=== PATIENT | female | born 2000 | race Caucasian/White ===

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

== ENCOUNTER 2019-04-03 02:44 | Inpatient (IN) | payer OTHER, MEDICAID ==
[~2019-04-03] VITALS: Ht 171.4 cm; Wt 90.9 kg
[2019-04-03] MEDS ORDERED: normal saline 1000ML IV soln IV ONE ×2 (03:05→05:20)
[2019-04-03 03:40] LABS: URINE HCG POSITIVE (NEG)
[2019-04-03 03:41] LABS: CLARITY,URINE SLIGHTLY CLOUDY (Clear); GLUCOSE, URINE NEGATIVE (Neg); KETONES,URINE 40 mg/dl (Neg); LEUKOCYTE ESTERASE ,URINE MODERATE (Neg); NITRITES, URINE NEGATIVE (Neg); OCCULT BLOOD,URINE LARGE (Neg); PH,URINE 6.5 (4.8-8.0); PROTEIN,URINE TRACE mg/dl (Neg)
[2019-04-03 03:43] LABS: COLOR,URINE DARK YELLOW (Yellow); UA COLLECTION TYPE CLN CATCH MIDSTREAM
[2019-04-03 03:51] LABS: WBC,URINE 20-30 /HPF (0-4)
[2019-04-03 03:52] LABS: BACTERIA,URINE 3+ /HPF (Neg); MUCUS STRANDS MANY /LPF (Neg); SQUAMOUS EPITHELIAL CELL,UR MANY /LPF (FEW); TRANSITIONAL EPI CELLS,URINE FEW /HPF
[2019-04-03] MEDS ORDERED: CefTRIAXone/D5W-Rocephin 1gm 50 ML IV ONE (03:55)
[2019-04-03 03:57] LABS: PARTIAL THROMBOPLASTIN TIME 28 SECONDS (22-32)
[2019-04-03 04:00] LABS: ALANINE AMINOTRANSFERASE 18 U/L (12-78); ALBUMIN 3.5 G/DL (3.4-5.0); ALBUMIN/GLOBULIN RATIO 0.8 (1.1-1.5); ALKALINE PHOSPHATASE 93 IU/L (20-180); ANION GAP 13 (8-16); ASPARTATE AMINO TRANSFERASE 14 U/L (10-37); BILIRUBIN,TOTAL 1.2 MG/DL (0.1-1.0); BLOOD UREA NITROGEN 4 MG/DL (7-18); BUN/CREATININE RATIO 6.5 (6.6-38.0); CALCIUM 9.5 MG/DL (8.5-10.1); CHLORIDE 98 MMOL/L (99-107); CREATININE 0.62 MG/DL (0.40-0.90); GLUCOSE 89 MG/DL (70-104); MAGNESIUM 1.8 MG/DL (1.5-2.4); SODIUM 135 MMOL/L (135-145); TOTAL CARBON DIOXIDE 24.5 MMOL/L (24-32); TOTAL PROTEIN 7.7 G/DL (6.4-8.2); eGFR > 90 ML/MIN
[2019-04-03 04:05] LABS: POTASSIUM 2.9 MMOL/L (3.5-5.1)
[2019-04-03 04:08] LABS: BASOPHILS % (AUTO) 0.3 % (0-1); EOSINOPHILS % (AUTO) 0.3 % (0-6); HEMATOCRIT 34.2 % (35.0-45.0); HEMOGLOBIN 11.8 g/dl (12.0-16.0); LYMPHOCYTES # (AUTO) 0.9 X10'3 (1.1-4.8); LYMPHOCYTES % (AUTO) 8.4 % (21-51); MEAN CORPUSCULAR HEMOGLOBIN 29.7 PG (27.0-31.0); MEAN CORPUSCULAR HGB CONC 34.6 g/dL (33.0-36.5); MEAN CORPUSCULAR VOLUME 85.9 FL (78-98); MEAN PLATELET VOLUME 9.8 FL (7.4-10.4); MONOCYTES # (AUTO) 1.3 X10'3 (0-0.9); NEUTROPHILS # (AUTO) 8.5 X10'3 (1.8-7.7); PLATELET COUNT 248 X10'3 (140-440); RED BLOOD COUNT 3.98 X10'6 (4.20-5.60); RED CELL DISTRIBUTION WIDTH 13.6 % (11.5-14.5); WHITE BLOOD COUNT 10.8 X10'3 (4.5-11.0)
[2019-04-03] MEDS ORDERED: potassium Cl 20 mEq SR tablet PO ONE (04:10)
[2019-04-03] MEDS ORDERED: potassium Cl 10 mEq/100mL bag IV ONE (04:10)
[2019-04-03] MEDS ORDERED: ondansetron/PF 4mg/2ml inj IV ONE (04:15)
[2019-04-03 04:23] LABS: CLARITY,URINE SLIGHTLY CLOUDY (Clear); COLOR,URINE YELLOW (Yellow); GLUCOSE, URINE 100 mg/dl (Neg); KETONES,URINE >=80 mg/dl (Neg); LEUKOCYTE ESTERASE ,URINE TRACE (Neg); NITRITES, URINE NEGATIVE (Neg); OCCULT BLOOD,URINE LARGE (Neg); PROTEIN,URINE 30 mg/dl (Neg); UA COLLECTION TYPE STRAIGHT CATH
[2019-04-03 04:30] LABS: BACTERIA,URINE FEW /HPF (Neg); WBC,URINE 20-30 /HPF (0-4)
[2019-04-03 04:31] LABS: MUCUS STRANDS MANY /LPF (Neg); TRANSITIONAL EPI CELLS,URINE FEW /HPF; WBC CLUMPS,URINE MODERATE /HPF (NEGATIVE)
[2019-04-03 04:32] LABS: SQUAMOUS EPITHELIAL CELL,UR MODERATE /LPF (FEW)
[2019-04-03 04:33] LABS: FINE GRANULAR CAST 0-3 /LPF (NEGATIVE); HYALINE CASTS 0-3 /LPF (NEGATIVE)
[2019-04-03] MEDS ORDERED: ONDA4TAB12 PO (05:34)
[2019-04-03] MEDS ORDERED: magnesium 2GM in 50ml NS 50 ML IV PRN (06:25)
[2019-04-03] MEDS ORDERED: mag hydrox/Alum hydrox/simeth 30ml oral suspension PO PRN (06:25)
[2019-04-03] MEDS ORDERED: magnesium 4gm in 100ml NS 100 ML IV PRN (06:25)
[2019-04-03] MEDS ORDERED: potassium Cl 20 mEq SR tablet PO PRN (06:25)
[2019-04-03] MEDS ORDERED: ondansetron/PF 4mg/2ml inj IV PRN (06:25)
[2019-04-03] MEDS ORDERED: magnesium hydroxide 30ml (MOM) UD suspension PO PRN (06:25)
[2019-04-03] MEDS ORDERED: potassium CL 10mEq/100ml bag 100 ML IV PRN ×2 (06:25)
[2019-04-03] MEDS ORDERED: acetaminophen 325mg tablet PO PRN ×2 (06:25)
[2019-04-03] MEDS ORDERED: magnesium Cl slow-release 64mg tablet PO PRN (06:25)
--- NOTE | 2019-04-03 07:15 | NUR ---
RECEIVED REPORT FROM NICKO CONLEY RN.
--- NOTE | 2019-04-03 07:40 | NUR ---
PATIENT ARRIVED TO ROOM 4013 AT THIS TIME.
[2019-04-03 07:45] VITALS: BP 118/78
[2019-04-03] MEDS ORDERED: K and/or MAG REPLACEMENT MC SCH (08:00)
[2019-04-03] MEDS ORDERED: FLU VACC QS2019-20 36MOS UP/PF 60 MCG/0.5 ML SYRINGE IMVAC ONE (08:35)
[2019-04-03] MEDS: potassium Cl 20 mEq SR tablet PO PRN ×2 (08:37→14:39)
[2019-04-03 10:00] VITALS: BP 105/57
[2019-04-03] MEDS ORDERED: AMOX-580 PO (12:51)
--- NOTE | 2019-04-03 13:10 | NUR ---
Malnutrition consult: Pt 16 weeks seen at bedside reports UBW 214 lbs with 13 lb wt loss r/t not eating much and increased emesis secondary to being . If pt truly lost this weight, this would be non-significant wt loss of 6% in 4 months. Per records pt weighed 196 lb 06/06/16 using standing scale and 205 lbs 03/16/18 also using a standing scale; current documented wt is 200 lb. Per wt hx pt with non-significant wt loss of 2% in 1 year. Pt currently on a regular diet however reports only eating a [employer] burrito for lunch. Pt with no decrease in muscle strength, edema, or visible fat/muscle wasting. Pt currently does not meet criteria for malnutrition. 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 RD encouraged PO intake d/t and provided pt with alternative write in menu to provide additional food options and RD contact information. Pt reports she takes antinausea medication at home to help increase PO intake. Pt reports BM today. Will continue to follow. Addendum: 04/03/19 at [address] Amended: Links added.
--- NOTE | 2019-04-03 13:47 | NUR ---
Noted patient's K+ 2.9, replaced K+ per protocol x [address] Landrum about rechecking K+ prior to discharge, states just to give 40 meq x 1 K+ now before leaving.
--- NOTE | 2019-04-03 14:53 | NUR ---
Patient discharged at this time, discussed discharge instructions, verbalized understanding, eager to go home. Called medication into [facility] in [facility]. Escorted out via [facility] staff per ambulation, tolerated well, without event. Belongings sent with patient, IV removed, Flu shot IM and po K+ 40 mEq x1 given before discharge. Patient aware she is to follow-up with PCP.
[2019-04-04] MEDS ORDERED: CefTRIAXone 2gm/D5W 50ml 50 ML IV SCH (08:00)
== END 2019-04-03 14:50 | disposition home or self-care (01) | DRG 833 ==
LOC: ER 02:45 → ED HOLD 06:22 → ORTHO 4S 07:39
PROVIDERS: ADMIT Hospitalist; ATTEND Internal Medicine
DX: O23.02 Infections of kidney in pregnancy, second trimester (principal); O99.282 Endocrine, nutritional and metabolic diseases complicating pregnancy, second trimester; Z3A.16 16 weeks gestation of pregnancy; Z87.440 Personal history of urinary (tract) infections; E87.6 Hypokalemia; O99.352 Diseases of the nervous system complicating pregnancy, second trimester; Z23 Encounter for immunization
CPT/HCPCS: 36415; 76775; 80053; 81001; 81025; 83605; 83735; 84145; 85025; 85610; 85730; 87040; 87077; 87081; 87088; 87186; 93005; 96365; 96375; 99285; G0378; J0696; J2405; J3480; Q2037

== ENCOUNTER 2022-07-07 20:57 | Inpatient (IN) | payer MEDICAID, OTHER ==
[~2022-07-07] VITALS: Ht 170.2 cm; Wt 95.9 kg
[~2022-07-07 20:57] MED LIST: ONDA4TAB12 PO
[2022-07-07 21:48] LABS: BASOPHILS # (AUTO) 0.1 X10'3 (0-0.2); BASOPHILS % (AUTO) 0.5 % (0-1); EOSINOPHILS # (AUTO) 0.1 X10'3 (0-0.9); HEMATOCRIT 38.6 % (35.0-45.0); HEMOGLOBIN 13.1 g/dl (12.0-16.0); LYMPHOCYTES # (AUTO) 1.5 X10'3 (1.1-4.8); LYMPHOCYTES % (AUTO) 12.1 % (21-51); MEAN CORPUSCULAR HEMOGLOBIN 29.9 PG (27.0-31.0); MEAN CORPUSCULAR VOLUME 87.9 FL (78-98); MEAN PLATELET VOLUME 9.6 FL (7.4-10.4); MONOCYTES # (AUTO) 0.7 X10'3 (0-0.9); MONOCYTES % (AUTO) 5.9 % (2-12); NEUTROPHILS # (AUTO) 10.3 X10'3 (1.8-7.7); NEUTROPHILS % (AUTO) 80.5 % (42-75); PLATELET COUNT 339 X10'3 (140-440); RED BLOOD COUNT 4.39 X10'6 (4.20-5.60); RED CELL DISTRIBUTION WIDTH 13.7 % (11.5-14.5); WHITE BLOOD COUNT 12.8 X10'3 (4.5-11.0)
[2022-07-07 21:50] LABS: URINE HCG NEGATIVE (NEG)
[2022-07-07 21:56] LABS: ALANINE AMINOTRANSFERASE 23 U/L (12-78); ALBUMIN 4.4 G/DL (3.4-5.0); ALBUMIN/GLOBULIN RATIO 1.3 (1.1-1.5); ALKALINE PHOSPHATASE 76 IU/L (46-116); ANION GAP 9 (8-16); ASPARTATE AMINO TRANSFERASE 20 U/L (10-37); BILIRUBIN,TOTAL 1.1 MG/DL (0.1-1.0); BLOOD UREA NITROGEN 5 MG/DL (7-18); BUN/CREATININE RATIO 6.8 (6.6-38.0); CALCIUM 9.4 MG/DL (8.5-10.1); CHLORIDE 102 MMOL/L (99-107); CREATININE 0.74 MG/DL (0.40-0.90); GLUCOSE 128 MG/DL (70-104); LIPASE < 50 U/L (73-393); POTASSIUM 3.4 MMOL/L (3.5-5.1); SODIUM 136 MMOL/L (135-145); TOTAL CARBON DIOXIDE 25.4 MMOL/L (24-32); TOTAL PROTEIN 7.8 G/DL (6.4-8.2); eGFR > 90 ML/MIN
[2022-07-07 22:00] LABS: CLARITY,URINE SLIGHTLY CLOUDY (Clear); COLOR,URINE AMBER (Yellow); GLUCOSE, URINE NEGATIVE (Neg); KETONES,URINE TRACE mg/dl (Neg); LEUKOCYTE ESTERASE ,URINE NEGATIVE (Neg); NITRITES, URINE NEGATIVE (Neg); OCCULT BLOOD,URINE LARGE (Neg); PH,URINE 6.5 (4.8-8.0); PROTEIN,URINE NEGATIVE (Neg); UROBILINOGEN,URINE 0.2 E.U/dL (0.2-1.0)
[2022-07-07 22:05] LABS: UA COLLECTION TYPE CLN CATCH MIDSTREAM
[2022-07-07 22:08] LABS: BACTERIA,URINE FEW /HPF (Neg); MUCUS STRANDS MANY /LPF (Neg); RBC,URINE 20-50 /HPF (0-2); SQUAMOUS EPITHELIAL CELL,UR MANY /LPF (FEW); WBC,URINE 0-4 /HPF (0-4)
[2022-07-08] VITALS (18 sets, daily range): BP systolic 114–136; BP diastolic 73–96
[2022-07-08] MEDS ORDERED: ondansetron/PF 4mg/2ml inj IV ONE (01:50)
[2022-07-08] MEDS ORDERED: ketorolac trometh. 30mg/ml inj. IV ONE (01:50)
[2022-07-08] MEDS ORDERED: normal saline 1000ML IV soln IVB ONE (01:50)
[2022-07-08] MEDS ORDERED: CefTRIAXone 2gm/D5W 50ml BAG 50 ML IV ONE (05:00)
[2022-07-08] MEDS ORDERED: acetaminophen 325mg tablet PO PRN ×2 (05:25)
[2022-07-08] MEDS ORDERED: HYDROcodone/acetaminophen 10/325mg tab PO PRN (05:25)
[2022-07-08] MEDS ORDERED: morphine 2 MG/ML inj. syringe IV PRN ×3 (05:25→15:15)
[2022-07-08] MEDS ORDERED: ondansetron/PF 4mg/2ml inj IV PRN ×2 (05:25→15:15)
[2022-07-08] MEDS ORDERED: potassium Cl 20 mEq SR tablet PO PRN ×2 (05:25)
[2022-07-08] MEDS ORDERED: magnesium 4gm in 100ml NS 100 ML IV PRN (05:25)
[2022-07-08] MEDS ORDERED: magnesium Cl slow-release 64mg tablet PO PRN (05:25)
[2022-07-08] MEDS ORDERED: potassium Cl 40MEQ/1/2NS 520ml 520 ML IV PRN (05:25)
--- NOTE | 2022-07-08 07:41 | NUR ---
Patient in room [facility]. I have received report from CARRILLO Rene from ED and had the opportunity to ask questions and assume patient care.
--- NOTE | 2022-07-08 07:42 | NUR ---
Page sent to regarding tele monitor order PAGER ID: [phone] MESSAGE: Yareli Smith Room 360A: Ok to DC tele order? No cardiac history, kameron HANNA. Thanks! Delia [id number] Addendum: 07/08/22 at 0958 by Delia Birmingham LVN Ok to DC tele per
[2022-07-08] MEDS: normal saline 1000ml 1,000 ML IV SCH ×2 (07:53→22:49)
[2022-07-08] MEDS: piperacillin/tazo 3.375gm/50ml 50 ML IV SCH ×3 (07:53→23:51)
[2022-07-08] MEDS: heparin, porcine 5000 units/ml vial SQ SCH ×2 (09:08→22:50)
--- NOTE | 2022-07-08 11:47 | NUR ---
I have reviewed and agree with all interventions, assessments performed and documented by ALFRED VALENTINE.
[2022-07-08] MEDS: HYDROcodone/acetaminophen 5mg/325mg tablet PO PRN (11:49)
[2022-07-08] MEDS ORDERED: INDOCYANINE GREEN 25 MG/10 ML VIAL IV ONE (15:00)
[2022-07-08] MEDS ORDERED: ringers solution, lacted 1,000 ML IV SCH (15:15)
[2022-07-08] MEDS ORDERED: proCHLORperazine 10 MG/2 ml inj IV PRN (15:15)
[2022-07-08] MEDS ORDERED: meperidine/PF 25mg/ml syringe IV PRN ×3 (15:15)
[2022-07-08] MEDS ORDERED: sevoflurane 250ml liquid IH ONE (16:21)
[2022-07-08] MEDS ORDERED: fentaNYL/PF 50MCG/1 ML 2ML syringe ONE (16:22)
[2022-07-08] MEDS ORDERED: midazolam 1 mg/ML 2ml injection ONE (16:22)
[2022-07-08] MEDS ORDERED: LIDOcaine 1% 30ml preserv. free vial ONE (16:26)
[2022-07-08] MEDS ORDERED: BUPIVAcaine 0.5% inj/PF 30 ML ONE (16:27)
[2022-07-08] MEDS ORDERED: rocuronium 10mg/ml inj IV ONE (16:31)
[2022-07-08] MEDS ORDERED: propofol inj 20 ML IV ONE (16:31)
[2022-07-08] MEDS ORDERED: LIDOcaine 1%/PF 5ML 10 MG/ML VIAL ONE (16:31)
[2022-07-08] MEDS ORDERED: ondansetron/PF 4mg/2ml inj ONE (16:32)
[2022-07-08] MEDS ORDERED: dexamethasone sod phosphate 4mg/ml inj. ONE (16:32)
[2022-07-08] MEDS ORDERED: LIDOcaine 1% 30ml preserv. free vial IJ ONE (16:47)
[2022-07-08] MEDS ORDERED: BUPIVAcaine 0.5% inj/PF 30 ml vial IJ ONE (16:48)
[2022-07-08] MEDS ORDERED: meperidine/PF 25mg/ml syringe ONE (17:20)
[2022-07-08] MEDS ORDERED: ketorolac trometh. 30mg/ml inj. ONE (17:21)
[2022-07-08] MEDS ORDERED: glycopyrrolate 0.2mg/ml inj ONE (17:22)
--- NOTE | 2022-07-08 17:40 | NUR ---
Received from OR via HOSPITAL BED TO ROOM 6, accompanied by Anesthesiologist DR TOLBERT and report given by Anesthesiolgist. PT PRESNTS WITH PIV 20G LEFT AC, ABD DRESSING 3 BANDAIDS, VSS. Addendum: 07/08/22 at 1917 by Caren Aaron RN RN Amended: Links added.
[2022-07-08] MEDS: morphine 4 MG/ML inj SYRINge IV PRN ×2 (17:45→17:52)
--- NOTE | 2022-07-08 18:40 | NUR ---
Problems reprioritized. Patient report given, questions answered & plan of care reviewed with CARRILLO Herrera.
--- NOTE | 2022-07-08 19:00 | NUR ---
Report called to receiving nurse LAUREN VIZCAINO. Transferred via HOSPITAL BED TO ROOM 360A. BED IN LOW LOCKED POSTIONS WITH CALL LIGHT IN REACH. PT Belongings WERE LEFT IN ROOM. PT'S CHART TAKEN TO NURSES STATION. PT HOOKED P TO VITALS MACHINE. Special Issues communicated to receiving nurse. Addendum: 07/08/22 at 1917 by Caren Aaron RN RN Amended: Links added.
[2022-07-08] MEDS ORDERED: temazepam 15mg capsule PO PRN (21:00)
[2022-07-09] MEDS: HYDROcodone/acetaminophen 5mg/325mg tablet PO PRN ×4 (00:03→11:51)
[2022-07-09] MEDS: normal saline 1000ml 1,000 ML IV SCH (01:25)
[2022-07-09 02:00] VITALS: BP 106/64
[2022-07-09 06:00] VITALS: BP 110/72
[2022-07-09 06:42] LABS: BASOPHILS % (AUTO) 0.2 % (0-1); EOSINOPHILS % (AUTO) 0.1 % (0-6); HEMATOCRIT 34.9 % (35.0-45.0); HEMOGLOBIN 11.6 g/dl (12.0-16.0); LYMPHOCYTES # (AUTO) 0.9 X10'3 (1.1-4.8); LYMPHOCYTES % (AUTO) 12.4 % (21-51); MEAN CORPUSCULAR HEMOGLOBIN 29.7 PG (27.0-31.0); MEAN CORPUSCULAR HGB CONC 33.4 g/dL (33.0-36.5); MEAN CORPUSCULAR VOLUME 88.9 FL (78-98); MEAN PLATELET VOLUME 9.6 FL (7.4-10.4); MONOCYTES # (AUTO) 0.4 X10'3 (0-0.9); MONOCYTES % (AUTO) 6.2 % (2-12); NEUTROPHILS # (AUTO) 5.7 X10'3 (1.8-7.7); NEUTROPHILS % (AUTO) 81.1 % (42-75); PLATELET COUNT 262 X10'3 (140-440); RED BLOOD COUNT 3.92 X10'6 (4.20-5.60); RED CELL DISTRIBUTION WIDTH 13.7 % (11.5-14.5); WHITE BLOOD COUNT 7.1 X10'3 (4.5-11.0)
[2022-07-09 06:59] LABS: ALANINE AMINOTRANSFERASE 26 U/L (12-78); ALBUMIN 3.4 G/DL (3.4-5.0); ALBUMIN/GLOBULIN RATIO 1.1 (1.1-1.5); ALKALINE PHOSPHATASE 60 IU/L (46-116); ANION GAP 8 (8-16); ASPARTATE AMINO TRANSFERASE 23 U/L (10-37); BILIRUBIN,TOTAL 1.1 MG/DL (0.1-1.0); BLOOD UREA NITROGEN 5 MG/DL (7-18); BUN/CREATININE RATIO 7.7 (6.6-38.0); CALCIUM 8.8 MG/DL (8.5-10.1); CHLORIDE 107 MMOL/L (99-107); CREATININE 0.65 MG/DL (0.40-0.90); GLUCOSE 91 MG/DL (70-104); POTASSIUM 3.8 MMOL/L (3.5-5.1); SODIUM 139 MMOL/L (135-145); TOTAL CARBON DIOXIDE 24.3 MMOL/L (24-32); TOTAL PROTEIN 6.5 G/DL (6.4-8.2); eGFR > 90 ML/MIN
--- NOTE | 2022-07-09 06:59 | NUR ---
Problems reprioritized. Patient report given, questions answered & plan of care reviewed with CHANDA. Addendum: 07/09/22 at 0700 by Arturo Sutherland RN Amended: Links added.
[2022-07-09] MEDS: piperacillin/tazo 3.375gm/50ml 50 ML IV SCH (07:54)
[2022-07-09] MEDS: heparin, porcine 5000 units/ml vial SQ SCH (07:54)
[2022-07-09 11:00] VITALS: BP 120/82
--- NOTE | 2022-07-09 14:58 | NUR ---
Prescription called in to [facility] in [place], patient discharged with significant other.
== END 2022-07-09 14:45 | disposition home or self-care (01) | DRG 263 ==
LOC: ER 20:57 → ED HOLD 07-08 05:27 → SUR 3N 07-08 07:27
PROVIDERS: ADMIT Internal Medicine; ATTEND Family Medicine
PROC: 8E0W4CZ Robotic Assisted Procedure of Trunk Region, Percutaneous Endoscopic Approach (ICD-10-PCS; 2022-07-08)
PROC: BF532Z0 Other Imaging of Gallbladder and Bile Ducts using Fluorescing Agent, Intraoperative (ICD-10-PCS; 2022-07-08)
PROC: 0FT44ZZ Resection of Gallbladder, Percutaneous Endoscopic Approach (ICD-10-PCS; principal; 2022-07-08 16:21)
DX: K80.00 Calculus of gallbladder with acute cholecystitis without obstruction (principal); G43.909 Migraine, unspecified, not intractable, without status migrainosus; Z87.440 Personal history of urinary (tract) infections; Z91.018 Allergy to other foods
CPT/HCPCS: 36415; 74176; 76700; 80053; 81001; 81025; 82948; 83605; 83690; 85025; 85610; 87040; 87081; 96361; 96374; 96375; 99285; A4215; A4615; A4618; A7000; G0378; J0696; J1100; J1644; J1885; J2175; J2250; J2270; J2405; J2543; J2704; J3010; J3490; J7030; J7120; S0020

== ENCOUNTER 2022-07-27 10:48 | Emergency (ER) | payer MEDICAID ==
[~2022-07-27] VITALS: Ht 170.2 cm; Wt 94.0 kg
[2022-07-27 12:08] LABS: BASOPHILS % (AUTO) 0.2 % (0-1); EOSINOPHILS % (AUTO) 0.4 % (0-6); HEMATOCRIT 39.5 % (35.0-45.0); HEMOGLOBIN 13.4 g/dl (12.0-16.0); LYMPHOCYTES # (AUTO) 0.5 X10'3 (1.1-4.8); LYMPHOCYTES % (AUTO) 8.4 % (21-51); MEAN CORPUSCULAR HEMOGLOBIN 29.4 PG (27.0-31.0); MEAN CORPUSCULAR HGB CONC 33.8 g/dL (33.0-36.5); MEAN CORPUSCULAR VOLUME 87.1 FL (78-98); MEAN PLATELET VOLUME 9.1 FL (7.4-10.4); MONOCYTES # (AUTO) 0.6 X10'3 (0-0.9); NEUTROPHILS # (AUTO) 5.2 X10'3 (1.8-7.7); PLATELET COUNT 346 X10'3 (140-440); RED BLOOD COUNT 4.54 X10'6 (4.20-5.60); RED CELL DISTRIBUTION WIDTH 13.8 % (11.5-14.5); WHITE BLOOD COUNT 6.4 X10'3 (4.5-11.0)
[2022-07-27 12:23] LABS: ALANINE AMINOTRANSFERASE 25 U/L (12-78); ALBUMIN 4.1 G/DL (3.4-5.0); ALBUMIN/GLOBULIN RATIO 1.1 (1.1-1.5); ALKALINE PHOSPHATASE 72 IU/L (46-116); ANION GAP 9 (8-16); ASPARTATE AMINO TRANSFERASE 17 U/L (10-37); BILIRUBIN,TOTAL 1.5 MG/DL (0.1-1.0); BLOOD UREA NITROGEN 14 MG/DL (7-18); BUN/CREATININE RATIO 17.7 (6.6-38.0); CALCIUM 9.4 MG/DL (8.5-10.1); CHLORIDE 103 MMOL/L (99-107); CREATININE 0.79 MG/DL (0.40-0.90); GLUCOSE 111 MG/DL (70-104); LIPASE < 50 U/L (73-393); POTASSIUM 3.6 MMOL/L (3.5-5.1); SODIUM 141 MMOL/L (135-145); TOTAL PROTEIN 7.7 G/DL (6.4-8.2); eGFR > 90 ML/MIN
[2022-07-27 13:28] LABS: CLARITY,URINE CLOUDY (Clear); COLOR,URINE YELLOW (Yellow); GLUCOSE, URINE NEGATIVE (Neg); KETONES,URINE TRACE mg/dl (Neg); LEUKOCYTE ESTERASE ,URINE TRACE (Neg); NITRITES, URINE NEGATIVE (Neg); OCCULT BLOOD,URINE LARGE (Neg); PROTEIN,URINE TRACE mg/dl (Neg)
[2022-07-27 13:31] LABS: UA COLLECTION TYPE CLN CATCH MIDSTREAM
[2022-07-27 13:35] LABS: BACTERIA,URINE 3+ /HPF (Neg); MUCUS STRANDS FEW /LPF (Neg); RBC,URINE 20-50 /HPF (0-2); SQUAMOUS EPITHELIAL CELL,UR MANY /LPF (FEW)
[2022-07-27 13:37] LABS: URINE HCG NEGATIVE (NEG)
--- NOTE | 2022-07-27 18:06 | NUR ---
PROVIDER AT BEDSIDE FOR EVAL - PTS GRANDMOTHER ALSO AT BEDSIDE
[2022-07-27] MEDS ORDERED: proCHLORperazine 10 MG/2 ml inj IV ONE (18:15)
[2022-07-27] MEDS ORDERED: normal saline 1000ml 1,000 ML IV ONE (18:15)
[2022-07-27] MEDS ORDERED: diphenhydrAMINE 50 mg/ml inj IV ONE (18:15)
[2022-07-27] MEDS ORDERED: cephalexin 250mg capsule PO ONE (18:15)
[2022-07-27] MEDS ORDERED: PROC25SU31 RC (18:59)
[2022-07-27 19:43] VITALS: BP 125/92
[2022-07-27] MEDS ORDERED: CEPH250T PO (20:30)
== END 2022-07-27 21:04 | disposition home or self-care (01) ==
LOC: ER 10:49
DX: R11.2 Nausea with vomiting, unspecified (principal); G43.909 Migraine, unspecified, not intractable, without status migrainosus; Z91.018 Allergy to other foods
CPT/HCPCS: 36415; 80053; 81001; 81025; 83690; 85025; 96361; 96374; 96375; 99284; J0780; J1200; J7030

== ENCOUNTER 2023-04-07 17:16 | Emergency (ER) | payer MEDICAID ==
[~2023-04-07] VITALS: Ht 170.2 cm; Wt 103.6 kg
[2023-04-07 17:29] VITALS: BP 139/96; PULSE 60; RESP 16; TEMP 98.4; O2SAT 99
[2023-04-07] MEDS ORDERED: DICL50TA8 PO (20:40)
== END 2023-04-07 21:04 | disposition home or self-care (01) ==
LOC: ER 17:16
DX: S93.602A Unspecified sprain of left foot, initial encounter (principal); X58.XXXA Exposure to other specified factors, initial encounter; Y93.89 Activity, other specified; Y92.89 Other specified places as the place of occurrence of the external cause; Y99.8 Other external cause status
CPT/HCPCS: 73630; 99283; L1930